=== PATIENT | male | born 2000 | race African-American/Black ===

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

== ENCOUNTER 2018-09-23 15:26 | Emergency (ER) | payer OTHER, MEDICAID ==
[2018-09-23 15:43] VITALS: BP 129/73
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
== END 2018-09-23 16:09 | disposition home or self-care (01) ==
LOC: ER 15:26
DX: S39.012A Strain of muscle, fascia and tendon of lower back, initial encounter (principal); V49.50XA Passenger injured in collision with unspecified motor vehicles in traffic accident, initial encounter
CPT/HCPCS: 99283